=== PATIENT | female | born 1965 | race African-American/Black ===

== ENCOUNTER 2017-01-15 22:32 | Inpatient (IN) | payer MEDICARE ==
--- NOTE | ~2017-01-15 | CT16 ---
[facility] A Service of [facility] RADIOLOGY TEXT RESULTS PATIENT: MARIELA CARRINGTON LOCATION: [facility] : 67 UNIT #: [id number] AGE: [address]: Boy Chapa MD SEX: F ORDER DR: [id number] [facility] [address]. [place], [place] [address] [id number] I MR#: [id number] Acc #: [id number] NAME: MARIELA CARRINGTON : 1965 SEX: F STUDY DATE/TIME: 01/16/2017 10:19 UNIT: [address] ROOM: [facility] STUDY DESCRIPTION: CT Angio Chest for PE Attending Physician: Boy Chapa M.D. Ordering Physician: Boy Chapa M.D. Primary Care Physician: Arnaud Grubbs M.D. MEDICAL IMAGING REPORT This report is preliminary unless electronic signature is present EXAM CT scan of the chest with pulmonary embolus protocol. INDICATIONS Weakness in arms and legs. Shortness of air this morning. COMPARISON 10/14/2013. TECHNIQUE Patient was given 80 mL of Isovue-370 and spiral imaging was performed through the chest. 3-D reconstruction of the pulmonary arteries were generated. This CT exam was performed with one or more of the following radiation dose reduction techniques: automatic exposure control, adjustment of mA and/or kV according to patient size, and iterative reconstruction. FINDINGS The right thyroid lobe is small or absent. The left is slightly prominent. The aorta is normal in size and there is no dissection. There is adequate opacification of the pulmonary arteries and there is no CT evidence of pulmonary embolus. There are small bilateral effusions with minimal basilar atelectasis. The visualized portions of the upper abdomen are normal. The bones are unremarkable. IMPRESSION Very small bilateral effusions with minimal basilar atelectasis. No CT evidence of pulmonary embolus. Otherwise, normal. [facility] A Service of [facility] RADIOLOGY TEXT RESULTS PATIENT: MARIELA CARRINGTON LOCATION: [facility] : 67 UNIT #: [id number] AGE: [address]: Boy Chapa MD SEX: F ORDER DR: Dictated by... Maynor Marques M.D. THIS IS AN ELECTRONICALLY VERIFIED REPORT Maynor Marques M.D. at 01/16/2017 3:13 PM MARCY/dede TD: 01/16/2017 12:56 JOB #: [id number] MEDICAL IMAGING REPORT COPY
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
--- NOTE | ~2017-01-15 | EKG ---
PATIENT: MARIELA CARRINGTON UNIT #: [id number] Ventricular Rate: 73 BPM Atrial Rate: 73 BPM P-R Interval: 178 ms QRS Duration: 84 ms Q-T Interval: 402 ms QTC Calculation(Bezet): 442 ms P [place]: 59 degrees Calculated R [place]: 30 degrees Calculated T [place]: 37 degrees Diagnosis Line: Normal sinus rhythm Diagnosis Line: Possible Left atrial enlargement Diagnosis Line: Nonspecific T wave abnormality Diagnosis Line: Abnormal ECG Diagnosis Line: No previous ECGs available Diagnosis Line: Confirmed by LIVIA BROWN MD ([id number]) on 01/16/2017 Diagnosis Line: 7:34:48 PM INTERPRETING MD: STEPHANIE GALLEGOS
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
--- NOTE | ~2017-01-15 | CR72 ---
[facility] A Service of [facility] RADIOLOGY TEXT RESULTS PATIENT: MARIELA CARRINGTON LOCATION: [facility] 337- : 67 UNIT #: [id number] AGE: [address]: Boy Chapa MD SEX: F ORDER DR: [id number] [facility] [address] [place], [place] [address] [id number] I MR#: [id number] Acc #: [id number] NAME: MARIELA CARRINGTON : 1965 SEX: F STUDY DATE/TIME: 01/15/2017 22:21 UNIT: [address] ROOM: [facility] STUDY DESCRIPTION: CR Chest Single View Portable Attending Physician: Boy Chapa M.D. Ordering Physician: Arnaud Rubi M.D. Primary Care Physician: Arnaud Grubbs M.D. MEDICAL IMAGING REPORT This report is preliminary unless electronic signature is present EXAM Portable chest 01/15/2017 HISTORY Shortness of breath, cough and generalized weakness for 3 days. Benign essential hypertension. FINDINGS Exam is limited by patient rotation. Cardiac size is stable compared with 10/22/2013. There is poor inspiratory result with atelectasis or infiltrate in the right lower lobe. Lungs are otherwise clear. There are no pleural effusions. IMPRESSION Poor inspiratory result with infiltrate and/or atelectasis right lower lobe. Dictated by... Steve Read M.D. THIS IS AN ELECTRONICALLY VERIFIED REPORT Steve Read M.D. at 01/16/2017 10:56 AM RICHIE/aiden TD: 01/16/2017 07:14 JOB #: [id number] MEDICAL IMAGING REPORT COPY
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
[2017-01-15 22:29] LABS: POC - CKMB 1.1 ng/mL (0.0-7.9); POC - TROPONIN <0.05 ng/mL (<=0.05)
[~2017-01-15 22:32] MED LIST: ACCUTANE; ACETAMINOPHEN PO; ALEVE; ALPRAZOLAM PO; ALPRAZOLAM1 M1 PO; ALPRAZOLAM1 MG PO; BACTRIM DS TABL1 TA1 PO; BENICAR HCT 20-1 TA1 PO; CELEBREX PO; CIPRO PO; CLARITIN10 M2 PO; COLESTID PO; CYMBALTA PO; CYMBALTA30 MG PO; DARVOCET-N 1001 TA1 DOB; DEBLITANE0.35 MG PO; DIPHENOXYLATE/A1 TA1 PO; FERROUS SULFATE PO; FLEXERIL; FLEXERIL PO; FLEXERIL10 M1 PO; FLEXERIL10 MG PO; FLUOXETINE HCL40 M1 PO; FUROSEMIDE40 MG PO; GAS-X80 MG PO; HCTZ; HCTZ PO; HYDROCHLOROTHIA25 MG PO; HYDROCODON-ACE1 EAC5 PO; INDERAL LA PO; K-DUR20 ME1 PO; KCL PO; KEFLEX500 M1 PO; KLONOPIN PO; LASIX; LEVAQUIN PO; LEVSIN SUBLINGUAL; LEVSIN0.125 M1 PO; LOMOTIL TABLET1 TAB PO; LORTAB 10-5001 EACH PO; LORTAB 7.5-5001 TAB PO; LYRICA75 MG PO; MYSOLINE50 MG PO; NAPROXEN500 M1 PO; NEXIUM PO; NORVASC10 MG PO; OXYCODON HCL-1 UDTA1 PO; PHENERGAN PO; PHENERGAN12.5 MG PO; POTASSIUM CHLO10 ME2 PO; PREDNISONE; PREDNISONE PO; PRILOSEC20 MG PO; PRIMIDONE50 MG PO; PROPRANOLOL HCL10 MG PO; PROZAC PO; REGLAN10 MG PO; RISPERDAL0.5 MG PO; ROXICODONE5 MG PO; SEROQUEL50 M1 PO; SIMVASTATIN40 MG PO; SYNTHROID PO; SYNTHROID0.05 MG DOB; TEGRETOL PO; TRAZODONE PO; TRIAMTERENE-HCT1 TA8 PO; ULTRAM; VICODIN 5/1 TAB 5/50 PO; VICODIN 5/500 T1 TAB PO; VIT B-12 PO; VITAMIN B122500 MCG; XANAX0.5 M1 PO; XANAX0.5 MG PO; XANAX1 MG PO; ZOFRANODT PO; [UNRECOGNIZED DRUG - OTHER]
[2017-01-15 22:45] LABS: ARTERIAL BLD GAS O2 SATURATION 91.6 % (90.0-100.0); ARTERIAL BLOOD GAS ALLEN TEST NORMAL; ARTERIAL BLOOD GAS ART SITE LEFT RADIAL; ARTERIAL BLOOD GAS CARBOXY HB 1.2 %sat (0.0-9.0); ARTERIAL BLOOD GAS HCO3 29.3 mmol/L; ARTERIAL BLOOD GAS MET HB 0.9 %sat (0.0-2.0); ARTERIAL BLOOD GAS PCO2 41.3 mmHg (35.0-45.0); ARTERIAL BLOOD GAS PO2 63.2 mmHg (80.0-100); ARTERIAL BLOOD GAS pH 7.459 (7.350-7.450); ARTERIAL DRAW? YES
[2017-01-15 22:46] LABS: ARTERIAL BLOOD GAS DELIVERY ROOM AIR
[2017-01-15 22:52] LABS: BASOPHIL# 0.1 X10e3 (0-0.3); BASOPHIL% 1.3 % (0-2.5); EOSINOPHIL# 0.1 X10e3 (0-0.7); EOSINOPHIL% 1.8 % (0.0-7.0); HEMATOCRIT 41.3 % (35.0-45.0); HEMOGLOBIN 13.6 gm/dL (12.0-16.0); LYMPHOCYTE# 2.5 X10e3 (1.0-3.5); LYMPHOCYTE% 32.8 % (17.0-45.0); MEAN CELL VOLUME 81.6 FL (83-96); MEAN CORPUSCULAR HEMOGLOBIN 26.9 PG (28-34); MEAN CORPUSCULAR HGB CONC 32.9 g/dL (30-36); MONOCYTE# 0.4 X10e3 (0-1.0); MONOCYTE% 5.3 % (3.0-12.0); NEUTROPHIL# 4.5 X10e3 (1.5-7.1); NEUTROPHIL% 58.8 % (40-75); PLATELET COUNT 306 X10e3 (140-420); RED BLOOD COUNT 5.05 X10e (3.90-5.30); RED CELL DISTRIBUTION WIDTH 14.2 % (11.0-15.5); WHITE BLOOD COUNT 7.7 X10e3 (4.0-10.5)
[2017-01-15 22:54] LABS: DIFF IND NO
[2017-01-15 23:24] LABS: ALBUMIN SERUM 4.2 g/dL (3.5-5.0); ALKALINE PHOSPHATASE 60 U/L (32-92); ALT (SGPT) 23 U/L (10-40); AST (SGOT) 29 U/L (10-42); BILIRUBIN, DIRECT 0.1 mg/dL (0.0-0.2); BILIRUBIN,INDIRECT 0.2 mg/dL (0.0-0.9); BILIRUBIN,TOTAL 0.3 mg/dL (0.2-2.0); BLOOD UREA NITROGEN 6 mg/dL (9-23); CARBON DIOXIDE 29 mmol/L (22-31); CHLORIDE 99 mmol/L (100-111); GLOM FILT RATE Estimated ABOVE60 mL/min (>60); GLUCOSE FASTING 102 mg/dL (70-110); PROTEIN TOTAL SERUM 7.5 g/dL (6.0-8.3); SODIUM 139 mmol/L (135-145)
[2017-01-15 23:27] LABS: POTASSIUM 2.6 mmol/L (3.5-5.1)
[2017-01-15 23:48] LABS: THYROID STIMULATING HORMONE 2.51 uIU/ml (0.34-5.60)
[2017-01-15 23:50] LABS: URINE SOURCE CLEAN CATCH
[2017-01-15 23:54] LABS: URINE APPEARANCE CLEAR; URINE BILIRUBIN NEG (NEG); URINE BLOOD NEG (NEG); URINE COLOR YELLOW; URINE GLUCOSE NEG (NEG); URINE KETONE NEG (NEG); URINE LEUKOCYTE ESTERASE TRACE (NEG); URINE NITRATE NEG (NEG); URINE PH 6.5 (5-8); URINE PROTEIN NEG (NEG); URINE SPECIFIC GRAVITY 1.022 (1.003-1.035)
[2017-01-15 23:55] LABS: FREE THYROXIN (T4) 0.85 ng/dL (0.58-1.64)
[2017-01-15 23:56] LABS: URINE BACTERIA AUWI NEG (NEGATIVE); URINE SQUAMOUS EPITHELIAL CELL OCC /[HPF]; UWBCS1 AUWI 0-2 (0-5)
[2017-01-15 23:57] LABS: CULTURE INDICATED? NO
[2017-01-16] MEDS ORDERED: NEURONTIN300 MG PO (00:40)
[2017-01-16] MEDS ORDERED: PROZAC40 MG PO (00:42)
[2017-01-16 05:19] LABS: BASOPHIL# 0.1 X10e3 (0-0.3); BASOPHIL% 1.1 % (0-2.5); EOSINOPHIL# 0.1 X10e3 (0-0.7); EOSINOPHIL% 1.7 % (0.0-7.0); HEMATOCRIT 37.2 % (35.0-45.0); LYMPHOCYTE% 33.9 % (17.0-45.0); MEAN CELL VOLUME 82.1 FL (83-96); MEAN CORPUSCULAR HEMOGLOBIN 26.5 PG (28-34); MEAN CORPUSCULAR HGB CONC 32.3 g/dL (30-36); MEAN PLATELET VOLUME 8.7 FL (6.5-11.5); MONOCYTE# 0.5 X10e3 (0-1.0); MONOCYTE% 6.1 % (3.0-12.0); NEUTROPHIL% 57.2 % (40-75); PLATELET COUNT 305 X10e3 (140-420); RED BLOOD COUNT 4.53 X10e (3.90-5.30); WHITE BLOOD COUNT 8.8 X10e3 (4.0-10.5)
[2017-01-16 05:33] LABS: DIFF IND NO
[2017-01-16 06:32] LABS: BLOOD UREA NITROGEN 6 mg/dL (9-23); CALCIUM SERUM 8.7 mg/dL (8.4-10.2); CARBON DIOXIDE 26 mmol/L (22-31); CHLORIDE 104 mmol/L (100-111); CREATININE SERUM 0.8 mg/dL (0.6-1.4); GLOM FILT RATE Estimated ABOVE60 mL/min (>60); GLUCOSE FASTING 84 mg/dL (70-110); MAGNESIUM 1.7 mg/dL (1.6-3.0); POTASSIUM 3.2 mmol/L (3.5-5.1); SODIUM 139 mmol/L (135-145)
[2017-01-16 16:25] LABS: MAGNESIUM 1.8 mg/dL (1.6-3.0); POTASSIUM 3.6 mmol/L (3.5-5.1)
[2017-01-17 06:13] LABS: BLOOD UREA NITROGEN 5 mg/dL (9-23); BUN/CREATININE RATIO 8.33; CALCIUM SERUM 8.2 mg/dL (8.4-10.2); CARBON DIOXIDE 26 mmol/L (22-31); CHLORIDE 108 mmol/L (100-111); CREATININE SERUM 0.6 mg/dL (0.6-1.4); GLOM FILT RATE Estimated ABOVE60 mL/min (>60); GLUCOSE FASTING 87 mg/dL (70-110); SODIUM 141 mmol/L (135-145)
[2017-01-17 08:44] LABS: CPK (CREATINE PHOSPHOKINASE) 168 IU/L (26-140)
[2017-01-17 08:57] LABS: PROCALCITONIN <0.05 NG/ML
[2017-01-18 08:53] LABS: BLOOD UREA NITROGEN 5 mg/dL (9-23); BUN/CREATININE RATIO 8.33; CALCIUM SERUM 8.2 mg/dL (8.4-10.2); CARBON DIOXIDE 25 mmol/L (22-31); CHLORIDE 109 mmol/L (100-111); CREATININE SERUM 0.6 mg/dL (0.6-1.4); GLOM FILT RATE Estimated ABOVE60 mL/min (>60); GLUCOSE FASTING 87 mg/dL (70-110); MAGNESIUM 1.8 mg/dL (1.6-3.0); POTASSIUM 3.3 mmol/L (3.5-5.1); SODIUM 140 mmol/L (135-145)
[2017-01-18 14:11] LABS: FOLATE (FOLIC ACID) 9.4 ng/mL (>5.8)
[2017-01-19 10:59] LABS: MAGNESIUM 1.7 mg/dL (1.6-3.0); POTASSIUM 3.6 mmol/L (3.5-5.1)
== END 2017-01-19 13:48 | DRG 641 ==
LOC: CED 22:32 → CEDOF 01-16 00:58 → C3A PCU 01-16 02:47
PROVIDERS: Emergency Medicine; Internal Medicine; Psychiatry & Neurology Neurology
PROC: 05HF33Z Insertion of Infusion Device into Left Cephalic Vein, Percutaneous Approach (ICD-10-PCS; principal; 2017-01-16)
PROC: B54NZZA Ultrasonography of Left Upper Extremity Veins, Guidance (ICD-10-PCS; 2017-01-16)
DX: E87.6 Hypokalemia (principal); E66.01 Morbid (severe) obesity due to excess calories; I10 Essential (primary) hypertension; J98.11 Atelectasis; G89.29 Other chronic pain; M54.5 Low back pain; F09 Unspecified mental disorder due to known physiological condition; F41.1 Generalized anxiety disorder; F32.9 Major depressive disorder, single episode, unspecified; E03.9 Hypothyroidism, unspecified; Z90.49 Acquired absence of other specified parts of digestive tract; Z88.5 Allergy status to narcotic agent; R53.1 Weakness
CPT/HCPCS: 36415; 36600; 70450; 71010; 71275; 80048; 80076; 81003; 82308; 82550; 82553; 82607; 82746; 82803; 82947; 83605; 83735; 84132; 84439; 84443; 84484; 85025; 87040; 93005; 97110; 97116; 97163; 97167; 97530; 97535; 99285; G8978-GP; G8979-GP; G8987-GO; G8988-GO; J1650; J2543; J3475; Q9967